=== PATIENT | female | born 1975 | race Caucasian/White ===

== ENCOUNTER 2020-03-28 16:47 | Emergency (ER) | payer BC ==
[2020-03-28] MEDS ORDERED: Sodium Chloride 0.9% 500 ML IV ONE (18:38)
[2020-03-28] MEDS ORDERED: Sodium Chloride 0.9% 10 ML Syringe FLUSH PRN ×2 (18:38→18:47)
[2020-03-28] MEDS ORDERED: Iopamidol 755 Mg/ML 100 ML Bottle IVPUSH ONE (18:47)
[2020-03-28] MEDS ORDERED: Sodium Chloride 0.9% 45 ML IV SCH (19:00)
[2020-03-28] MEDS ORDERED: Heparin Sodium 5,000 Units/ML Vial IVPUSH ONE ×2 (20:03→20:30)
--- NOTE | 2020-03-28 20:06 | EDM.PDOC ---
<Dajuan Davis Alexandro - Last Filed: 03/30/20 11:05> ED HPI GENERAL MEDICAL PROBLEM - General Chief Complaint: Respiratory Problem Stated Complaint: SHORTNESS OF BREATH Time Seen by Provider: 03/28/20 17:18 Source of Information: Reports: Patient, RN Notes Reviewed - History of Present Illness INITIAL COMMENTS - FREE TEXT/NARRATIVE: 44 yr old female comes in with a 3 days hx of dyspnea with exertion. She had spinal fusion surgery at about 2 weeks ago. She thought she was recovering well until she started getting short of breath 2 to 3 days ago. No chest pain. No cough, fever or chills. She had covid infection this past December. Recovered. She did have a CT at some point later part of illness that showed "lynmph nodes in her chest". She has seen a specialist, decision made to watch, "consider biiopsy in the future". Back Pain Score (Numeric/FACES): 4 - Related Data Allergies Allergy/AdvReac Type Severity Reaction Status Date / Time canagliflozin [From Invokana] Allergy Other Verified 03/28/20 17:01 hydrochlorothiazide Allergy Other Verified 03/28/20 17:01 hydrocodone Allergy Itching Verified 03/28/20 17:01 liraglutide [From Victoza] Allergy Other Verified 03/28/20 17:01 lisinopril Allergy Swelling Verified 03/28/20 17:01 morphine Allergy Itching Verified 03/28/20 17:01 oxycodone [Oxycodone] Allergy Itching Verified 03/28/20 17:01 Penicillins Allergy Cannot Verified 03/28/20 17:01 Remember sulfanilamide [Sulfanilamide] Allergy Hives Verified 03/28/20 17:01 Home Meds: Home Meds Azelastine/Fluticasone [Dymista Nasal [place]] 03/28/20 [History] Candesartan [Atacand] 32 mg PO DAILY 03/28/20 [History] Cetirizine [ZyrTEC] 10 mg PO DAILY 03/28/20 [History] Cyclobenzaprine [Flexeril] 10 mg PO TID 03/28/20 [History] Dulaglutide [Trulicity] 1.5 mg SQ 03/28/20 [History] Estrogen,Con/M-Progest Acet [Prempro 0.3 MG-1.5 MG] 03/28/20 [History] Fluticasone Propion/Salmeterol [Advair 250-50 Diskus] 2 puff INH BID 03/28/20 [History] Furosemide [Lasix] 20 mg PO 03/28/20 [History] Mecobalamin [B12 Active] 03/28/20 [History] Montelukast [Singulair] 10 mg PO DAILY 03/28/20 [History] Omeprazole 40 mg PO 03/28/20 [History] PARoxetine HCl [Paxil] 40 mg PO 03/28/20 [History] Potassium Chloride [Klor-Con] 20 meq PO 03/28/20 [History] Spironolactone [Aldactone] 100 mg PO 03/28/20 [History] Tiotropium George [Spiriva Respimat] 2 puff INH BID 03/28/20 [History] amLODIPine [Norvasc] 5 mg PO DAILY 03/28/20 [History] hydrALAZINE [Apresoline] 10 mg PO 03/28/20 [History] sitaGLIPtin Phos/Metformin HCl [Janumet Xr 50-1,000 mg Tablet] 03/28/20 [History] traMADol HCl [Tramadol HCl] 100 mg PO TID 03/28/20 [History] Past Medical History Respiratory History: Reports: Asthma Other Respiratory History: pneumonia, covid, sarcodosis, mediastinal ly mphadenopothy [employer] History: Reports: Polycystic Ovaries Musculoskeletal History: Reports: Back Pain, Chronic - Infectious Disease History Infectious Disease History: Reports: Novel Coronavirus - Past Surgical History GI Surgical History: Reports: Cholecystectomy Female Surgical History: Reports: Salpingo-Oophorectomy Neurological Surgical History: Reports: Laminectomy, Spinal Fusion Musculoskeletal Surgical History: Reports: Arthroscopic Knee Social & Family History - Tobacco Use Tobacco Use Status *Q: Never Tobacco User - Caffeine Use Caffeine Use: Reports: None - Recreational Drug Use Recreational Drug Use: No ED EXAM, GENERAL - Physical Exam Exam: See Below General Appearance: Alert, No Apparent Distress Ears: Normal External Exam Head: Atraumatic. No: Facial Swelling Neck: Normal Inspection, Supple, Full Range of Motion Respiratory/Chest: No Respiratory Distress, Lungs Clear, Normal Breath Sounds. No: Rhonchi, Wheezing Cardiovascular: Regular Rate, Rhythm GI/Abdominal: Soft, Non-Tender Extremities: Normal Inspection. No: Pedal Edema, Leg Pain, Increased Warmth, Redness Neurological: Alert, Oriented, No Motor/Sensory Deficits Skin Exam: Warm, Dry, Normal Color, No Rash. No: Erythema Course - Re-Assessments/Exams Free Text/Narrative Re-Assessment/Exam: 03/30/20 11:07. D Dimer came back elevated at 5. CXR nl. CT Pul angio showed emboli in segmental and subsegmental branches all lobes, relative large volume acute pul emboli with minimal R heart strain. See Radiology report for details. Also of note there is "very bulky thoracic adenopathy new from 2013". As noted patient states that she had a CT in Jan that showed "lymph nodes". She has seen a specialist for this, I believe pulmonary with "plan to watch for now, consider biopsy sometime in the future" We are on diversion, both [facility] on are on diversion. Arrangements have been made for transfer to [facility]. Heparin bolus has been given and on Heparin drip. She maxes out for wt at max dose of 1300 units per hr. Continued to show no re sp. distress at time of repeat exam, sats still 98 to 100 per cent room air. 03/30/20 11:18 Dr Ruggiero, Hospitalist [facility] accepting Phys. She was transfered fixed wing. Departure - Departure Disposition: DC/Tfer to [facility] 02 Clinical Impression: Bilateral pulmonary embolism, Hyponatremia, History of lumbosacral spine surgery - Discharge Information Referrals: Daphnie Pena MD [Primary Care Provider] - Forms: ED Department Discharge Sepsis Event Note (ED) - Evaluation Sepsis Screening Result: No Definite Risk <Nitesh Miranda - Last Filed: 04/03/20 07:20> ED HPI GENERAL MEDICAL PROBLEM - History of Present Illness Onset: Gradual Onset Date: 03/26/20 Duration: Day(s):, Getting Worse Quality: Reports: Other (dyspnea on minimal exertion) Improves with: Reports: Rest Worsens with: Reports: Other (activity) Context: Reports: Other (gradual onset of dyspnea on minimal exerton) Treatments ELIGIBILITY SERVICES REPRESENTATIVE: Reports: Other (see below) (none) Social & Family History - Living Situation & Occupation Living situation: Reports: Occupation: Employed (self employed.) ED ROS GENERAL - Review of Systems Review Of Systems: See Below Constitutional: Reports: Malaise, Weakness, Fatigue, Decreased Appetite. Denies: Fever, Chills HEENT: Reports: No Symptoms Respiratory: Reports: Shortness of Breath, Cough (non productive.). Denies: Wheezing, Pleuritic Chest Pain Cardiovascular: Reports: Chest Pain, Blood Pressure Problem. Denies: Claudication, Dyspnea on Exertion, Edema, Lightheadedness, Orthopnea Endocrine: Reports: Fatigue GI/Abdominal: Reports: Constipation : Reports: No Symptoms Musculoskeletal: Reports: Back Pain ( post op lumbar spine laminectomy two weeks ago. ) Skin: Reports: No Symptoms Course - Vital Signs Last Recorded V/S: Last Vital Signs Temp 36.9 C 03/29/20 02:00 Pulse 98 03/29/20 02:00 Resp 20 03/29/20 02:00 BP 149/92 H 03/29/20 02:00 Pulse Ox 95 03/29/20 02:00 - Orders/Labs/Meds Labs: Laboratory Tests 03/28/20 03/28/20 03/28/20 Range/Units 17:30 17:30 17:30 WBC 11.50 H (3.98-10.04) K/mm3 RBC 4.39 (3.98-5.22) M/mm3 Hgb 11.9 (11.2-15.7) gm/dl Hct 37.0 (34.1-44.9) % MCV 84.3 (79.4-94.8) fl MCH 27.1 (25.6-32.2) pg MCHC 32.2 (32.2-35.5) g/dl RDW Std Deviation 47.9 H (36.4-46.3) fL Plt Count 435 H (182-369) K/mm3 MPV 8.9 L (9.4-12.3) fl Neut % (Auto) 71.3 H (34.0-71.1) % Lymph % (Auto) 19.2 L (19.3-51.7) % [place] % (Auto) 4.6 L (4.7-12.5) % Eos % (Auto) 4.2 (0.7-5.8) Baso % (Auto) 0.2 (0.1-1.2) % Neut # (Auto) 8.20 H (1.56-6.13) K/mm3 Lymph # (Auto) 2.21 (1.18-3.74) K/mm3 [place] # (Auto) 0.53 H (0.24-0.36) K/mm3 Eos # (Auto) 0.48 H (0.04-0.36) K/mm3 Baso # (Auto) 0.02 (0.01-0.08) K/mm3 D-Dimer, Quantitative 5.08 H (0.19-0.50) mg/L Sodium 133 L (136-145) mEq/L Potassium 4.0 (3.5-5.1) mEq/L Chloride 98 (98-107) mEq/L Carbon Dioxide 23 (21-32) mEq/L Anion Gap 16.0 H (5-15) BUN 14 (7-18) mg/dL Creatinine 0.9 (0.55-1.02) mg/dL Est Cr Clr Drug Dosing TNP Estimated GFR (MDRD) > 60 (>60) mL/min BUN/Creatinine Ratio 15.6 (14-18) Glucose 134 H (74-106) mg/dL Calcium 9.3 (8.5-10.1) mg/dL Total Bilirubin 0.3 (0.2-1.0) mg/dL AST 13 L (15-37) U/L ALT 24 (14-59) U/L Alkaline Phosphatase 52 (46-116) U/L Total Protein 8.2 (6.4-8.2) g/dl Albumin 3.5 (3.4-5.0) g/dl Globulin 4.7 gm/dL Albumin/Globulin Ratio 0.7 L (1-2) SARS-CoV-2 RNA (KAYLA) (NEGATIVE) 03/28/20 Range/Units 20:47 WBC (3.98-10.04) K/mm3 RBC (3.98-5.22) M/mm3 Hgb (11.2-15.7) gm/dl Hct (34.1-44.9) % MCV (79.4-94.8) fl MCH (25.6-32.2) pg MCHC (32.2-35.5) g/dl RDW Std Deviation (36.4-46.3) fL Plt Count (182-369) K/mm3 MPV (9.4-12.3) fl Neut % (Auto) (34.0-71.1) % Lymph % (Auto) (19.3-51.7) % [place] % (Auto) (4.7-12.5) % Eos % (Auto) (0.7-5.8) Baso % (Auto) (0.1-1.2) % Neut # (Auto) (1.56-6.13) K/mm3 Lymph # (Auto) (1.18-3.74) K/mm3 [place] # (Auto) (0.24-0.36) K/mm3 Eos # (Auto) (0.04-0.36) K/mm3 Baso # (Auto) (0.01-0.08) K/mm3 D-Dimer, Quantitative (0.19-0.50) mg/L Sodium (136-145) mEq/L Potassium (3.5-5.1) mEq/L Chloride (98-107) mEq/L Carbon Dioxide (21-32) mEq/L Anion Gap (5-15) BUN (7-18) mg/dL Creatinine (0.55-1.02) mg/dL Est Cr Clr Drug Dosing Estimated GFR (MDRD) (>60) mL/min BUN/Creatinine Ratio (14-18) Glucose (74-106) mg/dL Calcium (8.5-10.1) mg/dL Total Bilirubin (0.2-1.0) mg/dL AST (15-37) U/L ALT (14-59) U/L Alkaline Phosphatase (46-116) U/L Total Protein (6.4-8.2) g/dl Albumin (3.4-5.0) g/dl Globulin gm/dL Albumin/Globulin Ratio (1-2) SARS-CoV-2 RNA (KAYLA) Positive H (NEGATIVE) Meds: Medications Discontinued Medications Generic Name Dose Route Start Last Admin Trade Name Freq PRN Reason Stop Dose Admin Cyclobenzaprine HCl 10 mg 03/28/20 21:31 03/28/20 21:44 Flexeril PO 03/28/20 21:32 10 mg ONETIME ONE Administration Heparin Sodium (Porcine) 6,000 units 03/28/20 20:03 03/28/20 20:12 Heparin Sodium IVPUSH 03/28/20 20:04 6,000 units .BOLUS ONE Administration Heparin Sodium (Porcine) 6,000 units 03/28/20 20:30 03/28/20 20:32 Heparin Sodium IVPUSH 03/28/20 20:31 Not Given .BOLUS ONE Sodium Chloride 500 mls @ 999 mls/hr 03/28/20 18:38 03/28/20 18:50 Normal Saline IV 03/28/20 19:08 999 mls/hr .BOLUS ONE Administration Sodium Chloride 45 mls @ 40 mls/hr 03/28/20 19:00 03/28/20 19:07 Normal Saline IV 40 mls/hr ASDIRECTED ELSA Administration Heparin Sodium/Dextrose 25,000 units in 500 mls @ 26.045 mls/hr 03/28/20 20:15 03/28/20 20:47 Heparin 25,000 Units In D5w 500 Ml IV 9.9 units/kg/hr TITRATE ELSA 26.045 mls/hr Administration Protocol 9.9 UNITS/KG/HR Heparin Sodium/Dextrose 25,000 units in 500 mls @ 104.4 mls/hr 03/28/20 20:30 Heparin 25,000 Units In D5w 500 Ml IV TITRATE ELSA Protocol 18 UNITS/KG/HR Iopamidol 100 ml 03/28/20 18:47 03/28/20 19:07 Isovue-370 (76%) IVPUSH 03/28/20 18:48 100 ml ONETIME ONE Administration Sodium Chloride 10 ml 03/28/20 18:38 03/28/20 18:51 Saline Flush FLUSH 10 ml ASDIRECTED PRN Administration Keep Vein Open Sodium Chloride 10 ml 03/28/20 18:47 03/28/20 19:07 Saline Flush FLUSH 10 ml ONETIME PRN Administration Keep Vein Open Tramadol HCl 50 mg 03/28/20 21:30 03/28/20 21:44 Ultram PO 03/28/20 21:31 50 mg ONETIME ONE Administration - Re-Assessments/Exams Free Text/Narrative Re-Assessment/Exam: 03/28/20 22:31 I did speak with with -- Covid doctor in [place] about the patients positive Covid 19 test. Both of us feel that since she had initial COVID-19 illness in the early part of December and was negative before her back surgery 2 weeks ago this is most likely the fact that the test is picking up minimal amount of virus particles. He feels that she does not need to be admitted to the Covid unit at this time Departure - Departure Time of Disposition: 02:02 Condition: Serious - Discharge Information *PRESCRIPTION DRUG MONITORING PROGRAM REVIEWED*: Not Applicable *COPY OF PRESCRIPTION DRUG MONITORING REPORT IN PATIENT [place]IN[place]: Not Applicable
[2020-03-28] MEDS ORDERED: Heparin Sodium/D5W 25,000 UNITS/500 ML BAG IV SCH ×2 (20:15→20:30)
[2020-03-28] MEDS ORDERED: traMADol 50 MG Tab PO ONE (21:30)
[2020-03-28] MEDS ORDERED: Cyclobenzaprine 10 MG Tab PO ONE (21:31)
--- NOTE | 2020-03-29 08:48 | CR ---
PROCEDURE INFORMATION: Exam: XR Chest, 1 View Exam date and time: 03/28/2020 5:29 PM Age: 44 years old Clinical indication: Dyspnea TECHNIQUE: Imaging protocol: XR of the chest Views: 1 view. COMPARISON: CT Chest w Cont 12/23/2013 1:05 PM FINDINGS: Lungs: Pleural space: Unremarkable. No pleural effusion. No pneumothorax. Heart/MediastinumMild prominence of right and left hilum appears similar to a topogram from a prior CT from 2013 and is likely longstanding. Bones/joints: Unremarkable. IMPRESSION: No acute process Thank you for allowing us to participate in the care of your patient. Dictated and Authenticated by: Pratik Brown MD 03/28/2020 7:27 PM Central Time ([place] & [place]) [facility]
--- NOTE | 2020-03-29 08:50 | CT ---
Addendum created by Pratik Brown MD on 03/28/2020 9:12 PM Central Time ([place] & [place]): The Clinical Service read the report and had no questions. Initial Report created on 03/28/2020 8:35 PM Central Time ([place] & [place]): PROCEDURE INFORMATION: Exam: CT Angiography Chest With Contrast Exam date and time: 03/28/2020 6:42 PM Age: 44 years old Clinical indication: Shortness of breath; Patient HX: Dyspnea, elevated d-dimer of 5 TECHNIQUE: Imaging protocol: Computed tomographic angiography of the chest with intravenous contrast. 3D rendering (Not supervised by radiologist): MIP and/or 3D reconstructed images were created by the technologist. COMPARISON: CT Chest w Cont 12/23/2013 1:05 PM FINDINGS: Pulmonary arteries: There is moderate to large volume acute pulmonary emboli. Specifically there are emboli involving segmental and subsegmental branches all lobes. Minimal right heart strain with RV to LV ratio slightly greater than 1. Aorta: Unremarkable. No aortic aneurysm. No aortic dissection. Lungs: Unremarkable. No consolidation. No masses. Pleural space: Unremarkable. No pneumothorax. No pleural effusion. Heart: See "Pulmonary arteries" finding. Lymph nodes: Marked thoracic lymphadenopathy. Specifically there are bulky thoracic lymph nodes involving the right paratracheal, precarinal, subcarinal, AP window, and bilateral hilar regions. For example there is a 1.5 cm AP window lymph node, paratracheal lymph nodes measuring up to 1.2 cm, and right hilar lymphadenopathy up to 3 cm in size. Gallbladder and bile ducts: Status post cholecystectomy. VON WEISS | Final Radiology Report CONFIDENTIALITY STATEMENT This report is intended only for use by the referring physician, and only in accordance with law. If you received this in error, call [phone]. Page 2 of 2 Bones/joints: Unremarkable. No acute fracture. Soft tissues: Unremarkable. IMPRESSION: 1. Moderate to large volume bilateral acute pulmonary emboli with evidence of right heart strain. 2. Very bulky thoracic lymphadenopathy new from 2013. Suspicious for underlying malignancy including the possibility of lymphoma. Clinical correlation necessary. Thank you for allowing us to participate in the care of your patient. Dictated and Authenticated by: Pratik Brown MD 03/28/2020 8:35 PM Central Time ([place] & [place]) [facility]
== END 2020-03-29 02:12 ==
LOC: JD.ED 16:47
DX: I26.99 Other pulmonary embolism without acute cor pulmonale (principal); U07.1 COVID-19; J45.909 Unspecified asthma, uncomplicated; E87.1 Hypo-osmolality and hyponatremia; Z98.890 Other specified postprocedural states; Z88.1 Allergy status to other antibiotic agents; Z88.5 Allergy status to narcotic agent; Z88.8 Allergy status to other drugs, medicaments and biological substances; Z88.0 Allergy status to penicillin; Z88.2 Allergy status to sulfonamides; Z79.899 Other long term (current) drug therapy
CPT/HCPCS: 36415; 71045; 71275; 80053; 85025; 85379; 87635; 96365; 96366; 96376; 99285; A9270; J1644; J7030; Q9967; 99284; U0002

== ENCOUNTER 2021-07-31 14:14 | Emergency (ER) | payer BC, OTHER | END 2021-07-31 17:30 | disposition home or self-care (01) | LOC: JD.ED 14:14 | DX: R10.9 Unspecified abdominal pain (principal) | CPT/HCPCS: 99283 ==